=== PATIENT | male | born 1960 | race Caucasian/White ===

== ENCOUNTER 2020-09-26 14:48 | Emergency (ER) | payer MEDICARE ==
[2020-09-26 15:19] LABS: #Eosinphils 0.3 thou/uL (0.0-0.7); #Lymphocytes 1.7 thou/uL (1.20-3.40); #Monocytes 0.5 thou/uL (0.11-0.59); #Neutrophils 3.8 thou/uL (1.40-6.50); %Basophils 0.7 % (0.0-1.0); %Eosinophils 5.2 % (0.0-10.0); %Lymphocytes 27.3 % (21.0-51.0); %Monocytes 7.8 % (0.0-10.0); Hemoglobin 8.3 g/dL (14.0-18.0); Mean Corpuscular Hemoglobin 39.5 pg (27.0-31.0); Mean Platelet Volume 6.8 fL (7.4-10.4); Platelet Count 98 thou/uL (130-400); RBC Distribution Width 26.4 % (11.5-14.5); White Blood Cell (WBC) Count 6.4 thou/uL (4.8-10.8)
[2020-09-26 15:38] LABS: ALT (SGPT) 12 U/L (8-55); AST (SGOT) 33 U/L (5-34); Albumin 3.7 g/dL (3.5-5.0); Alkaline Phosphatase 57 U/L (40-110); Anion Gap 19 mmol/L (10-20); BUN (Urea Nitrogen) 28 mg/dL (8.4-25.7); Bilirubin, Total 0.6 mg/dL (0.2-1.2); Calc. Creatinine Clearance 0 mL/min (70-130); Calcium 7.3 mg/dL (7.8-10.44); Carbon Dioxide 13 mmol/L (22-29); Chloride 107 mmol/L (98-107); Globulin 2.5 g/dL (2.4-3.5); Glucose 83 mg/dL (70-105); Potassium 4.8 mmol/L (3.5-5.1); Protein, Total 6.2 g/dL (6.0-8.3); Sodium 134 mmol/L (136-145)
[2020-09-26 15:40] LABS: Anisocytosis MODERATE=16-30 cells (100X) (0-5/hpf); Howell Jolly Bodies SLIGHT = 1-2 cells (100X) (None Seen); MDiff Complete? YES; Macrocytosis SLIGHT = 6-15 cells (100X) (0-5/hpf); Platelet Morphology Comment Appears Decreased; Poikilocytosis SLIGHT = 6-15 cells (100X) (0-5/hpf); Polychromasia SLIGHT = 2-3 cells (100X) (0-2/hpf); Schistocytes SLIGHT = 2-5 cells (100X) (0-1/hpf); Spherocytes SLIGHT = 1-5 cells (100X) (None Seen); Tear Drops SLIGHT = 2-5 cells (100X) (0-1/hpf)
[2020-09-26 16:00] LABS: CKMB 3.4 ng/mL (0-6.6)
[2020-09-26] MEDS ORDERED: Aspirin Chewable 81 MG TAB ONE (16:25)
[2020-09-26] MEDS ORDERED: Morphine 4 MG/ML VIAL ONE (16:25)
[2020-09-26] MEDS ORDERED: Lorazepam 1 MG TAB ONE ×2 (17:23→17:26)
== END 2020-09-26 19:15 | disposition left against medical advice (07) ==
LOC: ERS 14:48
DX: R53.1 Weakness (principal); R79.89 Other specified abnormal findings of blood chemistry; J44.9 Chronic obstructive pulmonary disease, unspecified; I48.91 Unspecified atrial fibrillation; F17.210 Nicotine dependence, cigarettes, uncomplicated; Z85.46 Personal history of malignant neoplasm of prostate; Z79.899 Other long term (current) drug therapy
CPT/HCPCS: 36415; 71045; 80053; 82553; 83605; 83735; 83880; 84484; 85025; 86850; 86900; 86901; 93005; 94760; 96374; J2270